=== PATIENT | female | born 1950 | race Caucasian/White ===

== ENCOUNTER 2021-05-17 08:14 | Day surgery (SDC) | payer MEDICARE ==
[2021-05-09 11:52] LABS: CLARITY,URINE CLEAR (Clear); COLOR,URINE YELLOW (Yellow); GLUCOSE, URINE NEGATIVE (Neg); KETONES,URINE 15 mg/dl (Neg); LEUKOCYTE ESTERASE ,URINE NEGATIVE (Neg); NITRITES, URINE NEGATIVE (Neg); OCCULT BLOOD,URINE NEGATIVE (Neg); PH,URINE 6.5 (4.8-8.0); PROTEIN,URINE NEGATIVE (Neg); UROBILINOGEN,URINE 0.2 E.U/dL (0.2-1.0)
[2021-05-09 11:57] LABS: BASOPHILS % (AUTO) 0.8 % (0-1); EOSINOPHILS # (AUTO) 0.1 X10'3 (0-0.9); EOSINOPHILS % (AUTO) 2.4 % (0-6); LYMPHOCYTES # (AUTO) 1.8 X10'3 (1.1-4.8); LYMPHOCYTES % (AUTO) 39.1 % (21-51); MEAN CORPUSCULAR HGB CONC 34.5 g/dL (33.0-36.5); MEAN CORPUSCULAR VOLUME 92.7 FL (78-98); MEAN PLATELET VOLUME 7.8 FL (7.4-10.4); MONOCYTES # (AUTO) 0.5 X10'3 (0-0.9); MONOCYTES % (AUTO) 10.7 % (2-12); NEUTROPHILS # (AUTO) 2.2 X10'3 (1.8-7.7); PRE OP HEMATOCRIT 46.1 % (35.0-45.0); PRE OP HEMOGLOBIN 15.9 g/dL (12.0-16.0); PRE OP PLATELET COUNT 288 X10'3 (140-440); RED BLOOD COUNT 4.98 X10'6 (4.20-5.60); RED CELL DISTRIBUTION WIDTH 13.8 % (11.5-14.5)
[2021-05-09 11:57] LABS: UA COLLECTION TYPE CLN CATCH MIDSTREAM
[2021-05-09 11:58] LABS: PRE OP PROTIME 10.3 SECONDS (9.0-12.0)
[2021-05-09 12:19] LABS: ALBUMIN 4.1 G/DL (3.4-5.0); ALBUMIN/GLOBULIN RATIO 1.3 (1.1-1.5); BLOOD UREA NITROGEN 16 MG/DL (7-18); BUN/CREATININE RATIO 22.9 (6.6-38.0); CALCIUM 9.5 MG/DL (8.5-10.1); CHLORIDE 102 MMOL/L (99-107); PRE OP ALT 22 U/L (30-65); PRE OP ANION GAP 8 (8-16); PRE OP AST 18 U/L (10-37); PRE OP BILIRUB, TOTAL 0.5 MG/DL (0.0-1.0); PRE OP GLUCOSE 93 MG/DL (70-104); PRE OP POTASSIUM 3.6 MMOL/L (3.4-5.1); PRE OP SODIUM 141 MMOL/L (135-145); TOTAL CARBON DIOXIDE 31.3 MMOL/L (24-32); TOTAL PROTEIN 7.2 G/DL (6.4-8.2); eGFR 82 ML/MIN
[2021-05-17] VITALS (8 sets, daily range): BP systolic 119–138; BP diastolic 49–80
[~2021-05-17] VITALS: Ht 167.6 cm; Wt 62.0 kg
[~2021-05-17 08:14] MED LIST: AMIL1TAB PO; L-THYROXINE PO; LIDOcaine 1% w/EPI 1:100,000 30ml vial (MDV) ONE; LIOT5TAB10 PO; POTA10TA37 PO; TRAZ-256 PO; cocaine 4% topical solution 4ml bottle ONE; diazepam 5mg tablet PO ONE; famotidine 20mg tablet PO ONE; mupirocin 2% ointment 22GM ONE; oxymetazoline 15 ML nasal spray NS ONE; oxymetazoline 15 ML nasal spray NS SCH; ringers solution, lacted 1,000 ML IV SCH
[2021-05-17] MEDS ORDERED: FENTANYL CITRATE/PF 50 MCG/1 ML VIAL ONE ×3 (10:42→12:44)
[2021-05-17] MEDS ORDERED: midazolam 1 mg/ML 2ml injection ONE (10:42)
[2021-05-17] MEDS ORDERED: propofol inj 20 ML IV ONE (10:43)
[2021-05-17] MEDS ORDERED: LIDOcaine 2% (20mg/ml) 5ml vial ONE (10:43)
[2021-05-17] MEDS ORDERED: sevoflurane 250ml liquid IH ONE (10:54)
[2021-05-17] MEDS ORDERED: glycopyrrolate 0.2mg/ml inj ONE (10:54)
[2021-05-17] MEDS ORDERED: ondansetron/PF 4mg/2ml inj ONE (11:05)
[2021-05-17] MEDS ORDERED: dexamethasone sod phosphate 4mg/ml inj. ONE (11:05)
--- NOTE | 2021-05-17 12:46 | NUR ---
Received from OR via GEE , accompanied by Anesthesiologist VANDANA and report given by Anesthesiolgist. PATIENT WITH 20G PIV IN RIGHT HAND RUNNING LR AT 100. VSS. ONE PACKING DRESSING IN RIGHT NARE. CDI. ARGELIA Howard DONNED AT PATIENT REQUEST. Addendum: 05/17/21 at 1256 by Brendon Hanna RN, RN Amended: Links added.
[2021-05-17] MEDS ORDERED: meperidine/PF 25mg/ml syringe IV PRN (12:50)
[2021-05-17] MEDS ORDERED: morphine 2 MG/ML inj. syringe IV PRN (12:50)
[2021-05-17] MEDS ORDERED: ringers solution, lacted 1,000 ML IV SCH (12:50)
[2021-05-17] MEDS ORDERED: ondansetron/PF 4mg/2ml inj IV PRN (12:50)
[2021-05-17] MEDS ORDERED: mupirocin 2% ointment 22GM ONE (13:10)
--- NOTE | 2021-05-17 13:56 | NUR ---
THIEN DISCHARGE CRITERIA HAS BEEN MET. VSS, PAIN AT A TOLERABLE LEVEL, VOIDING AND ABLE TO SAFELY AMBULATE AND TRANSFER SELF. IV TAKEN OUT WITHOUT ANY COMPLICATIONS. ALL DISCHARGE INSTRUCTIONS COVERED WITH PATIENT AND ALL QUESTIONS ANSWERED. PATIENT TAKEN OUT VIA WHEELCHAIR TO PERSONAL VEHICLE WHERE FAMILY/FRIEND DROVE PATIENT HOME. GAVE ALL DC INSTRUCTIONS TO SPOUSE WELL PATIENT AND ALL INSTRUCTIONS UNDERSTOOD. VSS. Addendum: 05/17/21 at 1413 by Brendon Hanna RN, RN Amended: Links added.
== END 2021-05-17 13:56 | disposition home or self-care (01) ==
LOC: PAS 08:14
PROVIDERS: ATTEND Otolaryngology
DX: J32.8 Other chronic sinusitis (principal); Z72.89 Other problems related to lifestyle; Z87.442 Personal history of urinary calculi; Z98.890 Other specified postprocedural states; Z79.899 Other long term (current) drug therapy; Z85.820 Personal history of malignant melanoma of skin; Z79.01 Long term (current) use of anticoagulants; Z20.822 Contact with and (suspected) exposure to COVID-19
CPT/HCPCS: 31259; 31267; 36415; 61782; 80053; 81003; 82948; 85025; 85576; 85610; 85730; 87070; 87075; 87102; 87635; 93005; A6402; C1726; C9250; C9803; J1100; J2250; J2405; J2704; J3010; J3490; J7030; J7040; J7120; U0003; U0005; Z7506; Z7508; Z7512; 88304; 88311; 88313; A4618; A7000

== ENCOUNTER 2022-01-17 05:58 | Day surgery (SDC) | payer MEDICARE ==
[~2022-01-17] VITALS: Ht 167.6 cm; Wt 58.7 kg
[2022-01-17] VITALS (16 sets, daily range): BP systolic 100–135; BP diastolic 43–69
[~2022-01-17 05:58] MED LIST changes: +ATOR20TA PO; +DOXY-327 PO; -L-THYROXINE PO; +LEVO100T PO; -LIDOcaine 1% w/EPI 1:100,000 30ml vial (MDV) ONE; +POTA-206 PO; -POTA10TA37 PO; -cocaine 4% topical solution 4ml bottle ONE; -diazepam 5mg tablet PO ONE; -mupirocin 2% ointment 22GM ONE; -oxymetazoline 15 ML nasal spray NS ONE; -oxymetazoline 15 ML nasal spray NS SCH
[2022-01-17] MEDS ORDERED: cocaine 4% topical solution 4ml bottle ONE (06:48)
[2022-01-17] MEDS ORDERED: methylPREDNISolone acetate 80mg/ml inj**IM only ONE (06:48)
[2022-01-17] MEDS ORDERED: mupirocin 2% ointment 22GM ONE ×2 (06:49→07:09)
[2022-01-17] MEDS ORDERED: oxymetazoline 15 ML nasal spray NS ONE (06:49)
[2022-01-17] MEDS ORDERED: LIDOCAINE 1%/EPI 1:100,000 inj. 10 ML multi-dose vial ONE ×2 (06:49→07:08)
[2022-01-17] MEDS: oxymetazoline 15 ML nasal spray NS PRN ×2 (06:51→09:18)
[2022-01-17] MEDS ORDERED: tranexamic acid 100mg/ml inj. ONE ×2 (07:57→09:00)
[2022-01-17] MEDS ORDERED: proCHLORperazine 10 MG/2 ml inj IV PRN (08:00)
[2022-01-17] MEDS ORDERED: ondansetron/PF 4mg/2ml inj IV PRN (08:00)
[2022-01-17] MEDS ORDERED: ringers solution, lacted 1,000 ML IV SCH (08:00)
[2022-01-17] MEDS ORDERED: meperidine/PF 25mg/ml syringe IV PRN ×2 (08:00)
[2022-01-17] MEDS ORDERED: morphine 2 MG/ML inj. syringe IV PRN (08:00)
[2022-01-17] MEDS ORDERED: acetaminophen 1,000mg/100ml IV 100 ML IV PRN (08:00)
[2022-01-17] MEDS ORDERED: labetalol 20mg/4ml (5mg/ml) syringe IV PRN (08:00)
[2022-01-17] MEDS ORDERED: morphine 4 MG/ML inj SYRINge IV PRN (08:00)
[2022-01-17] MEDS ORDERED: hydrALAZINE 20mg/ml inj. IV PRN (08:00)
[2022-01-17] MEDS ORDERED: sevoflurane 250ml liquid IH ONE (08:05)
[2022-01-17] MEDS ORDERED: midazolam 1 mg/ML 2ml injection ONE (08:11)
[2022-01-17] MEDS ORDERED: fentaNYL/PF 50MCG/1 ML 2ML syringe ONE (08:11)
[2022-01-17] MEDS ORDERED: ceFAZolin 1000mg inj ONE (08:35)
[2022-01-17] MEDS ORDERED: ondansetron/PF 4mg/2ml inj ONE (08:35)
[2022-01-17] MEDS ORDERED: propofol inj 20 ML IV ONE (08:35)
[2022-01-17] MEDS ORDERED: dexamethasone sod phosphate 4mg/ml inj. ONE (08:35)
[2022-01-17] MEDS ORDERED: LIDOcaine 2% (20mg/ml) 5ml vial ONE (08:35)
--- NOTE | 2022-01-17 09:30 | NUR ---
Received from OR via GEE , accompanied by Anesthesiologist DR CLAY and report given by Anesthesiolgist. PT PRESENTS WITH PIV 20G LET HAND, NASAL PACKING, VSS. Addendum: 01/17/22 at 0943 by Jyoti Hnana RN, RN Amended: Links added.
[2022-01-17] MEDS ORDERED: salt irrigation nasal spray 45 ML SPRAY NS PRN (09:35)
--- NOTE | 2022-01-17 10:00 | NUR ---
NASLA PACKING REMOVED, FOLDED 4X4 WITH MUSTACHE DRESSING
--- NOTE | 2022-01-17 12:00 | NUR ---
I HAVE REVIEWED D/C INSTRUCTIONS WITH PATIENT AND THEY HAVE VERBALIZED UNDERSTANDING OF INSTRUCTIONS. PATIENT D/C HOME WITH ALL BELONGINGS AND FAMILY GAVE TRANSPORT. PT GIVEN IRRIGATION WITH SYRINGE EXTRA 4X4. AT THIS TIME PT HAS NO BLEEDING FROM NOSE. PT REPORTS SHE HAD FOLLOW UP WITH DR RODRIGUEZ SCHEDULED. Addendum: 01/17/22 at 1210 by Jyoti Hanna RN, RN Amended: Links added.
== END 2022-01-17 12:00 | disposition home or self-care (01) ==
LOC: PAS 05:58
PROVIDERS: ATTEND Otolaryngology
DX: J32.8 Other chronic sinusitis (principal); J32.0 Chronic maxillary sinusitis; F31.9 Bipolar disorder, unspecified; Z79.899 Other long term (current) drug therapy; Z98.890 Other specified postprocedural states; Z20.822 Contact with and (suspected) exposure to COVID-19
CPT/HCPCS: 31255; 31256; 36415; 61782; 82948; 87635; 93005; A6402; C9803; J0131; J0690; J1100; J2175; J2250; J2405; J2704; J3010; J3490; J7030; J7040; J7120; U0003; U0005; Z7506; Z7508; Z7512; A4618; A6449; A7000; J1040